=== PATIENT | female | born 1995 | race Caucasian/White ===

== ENCOUNTER 2021-01-01 15:24 | Emergency (ER) | payer BC ==
[~2021-01-01] VITALS: Ht 167.6 cm; Wt 77.1 kg
[2021-01-01] MEDS ORDERED: DIPHENHYDRAMINE HCL INJ 50 MG/ML VIAL IM ONE (15:30)
[2021-01-01] MEDS ORDERED: FAMOTIDINE 20 MG TAB PO ONE (15:30)
[2021-01-01] MEDS ORDERED: METHYLPREDNISOLONE SOD SUCC 125 MG/2ML VIAL IM ONE (15:30)
[2021-01-01] MEDS ORDERED: PREDNISONE20 MG PO (17:13)
[2021-01-01] MEDS ORDERED: PEPCID20 MG PO (17:13)
== END 2021-01-01 17:20 | disposition home or self-care (01) ==
LOC: MERGE 16:01 → ER 16:01
DX: L50.9 Urticaria, unspecified (principal)
CPT/HCPCS: 93005; 99283; J1200; J2930